=== PATIENT | male | born 1985 | race Caucasian/White ===

== ENCOUNTER 2018-04-03 17:16 | Emergency (ER) | payer MEDICAID ==
[~2018-04-03] VITALS: Ht 177.8 cm; Wt 86.6 kg
[2018-04-03 17:34] VITALS: BP 161/89
[2018-04-03] MEDS ORDERED: CefTRIAXone 250MG IM Kit w/LIDOcaine IM ONE (18:05)
[2018-04-03 18:37] LABS: CLARITY,URINE CLEAR (Clear); COLOR,URINE YELLOW (Yellow); GLUCOSE, URINE NEGATIVE (Neg); KETONES,URINE NEGATIVE (Neg); LEUKOCYTE ESTERASE ,URINE NEGATIVE (Neg); NITRITES, URINE NEGATIVE (Neg); OCCULT BLOOD,URINE NEGATIVE (Neg); PROTEIN,URINE NEGATIVE (Neg); UA COLLECTION TYPE CLN CATCH MIDSTREAM; UROBILINOGEN,URINE 0.2 E.U/dL (0.2-1.0)
[2018-04-03] MEDS ORDERED: EMTR1TAB12 PO (18:50)
[2018-04-03] MEDS ORDERED: RALT400T PO (18:50)
[2018-04-03] MEDS: emtricitabine/tenofovir 200mg/300mg tablet PO SCH (19:09)
[2018-04-03] MEDS ORDERED: raltegravir 400mg tablet PO SCH (20:00)
== END 2018-04-03 19:13 | disposition home or self-care (01) ==
LOC: ER 17:50
DX: Z20.2 Contact with and (suspected) exposure to infections with a predominantly sexual mode of transmission (principal); Z79.899 Other long term (current) drug therapy
CPT/HCPCS: 36415; 81003; 87491; 99284

== ENCOUNTER 2022-06-08 20:27 | Emergency (ER) | payer SELFPAY ==
[~2022-06-08] VITALS: Ht 177.8 cm; Wt 77.3 kg
[~2022-06-08 20:27] MED LIST: EMTR1TAB12 PO; RALT400T PO
[2022-06-08 20:44] VITALS: BP 136/81
== END 2022-06-08 23:44 | disposition left against medical advice (07) ==
LOC: ER 20:27
DX: F11.23 Opioid dependence with withdrawal (principal); Z79.899 Other long term (current) drug therapy
CPT/HCPCS: 99281